=== PATIENT | female | born 2000 ===

== ENCOUNTER 2025-01-30 08:20 | Emergency (ER) | payer MEDICAID, OTHER, SELFPAY ==
--- NOTE | ~2025-01-30 | CT_ITS ---
EXAMINATION: CT ANGIOGRAM HEAD AND NECK CLINICAL INFORMATION: 25-year-old female, heard a crack, left side of neck pain. COMPARISON: None available. TECHNIQUE: Noncontrast axial imaging of the head was performed. This was followed by test bolus sequences and head and neck intravenous bolus administration 70 mL of Omnipaque 350. Helical imaging was performed in the axial plane from the aortic arch to the skull vertex. The data was processed at the chief nuclear medicine technologist's workstation for generation of MIP sequences. Angled MIPs and volume rendered reformatted images were also generated at an offline 3D workstation. Stenoses are assessed in accordance with NASCET criteria unless otherwise indicated. This CT examination was performed using dose optimization techniques as appropriate, variously including the following: *Automated exposure control *Adjustment of mA and/or kV according to patient size (this includes techniques or standardized protocols for targeted exams where dose is matched to indication/reason for exam; i.e. extremities or head) *Use of iterative reconstruction technique FINDINGS: NONCONTRAST HEAD CT: There is no evidence of intracranial hemorrhage or extra-axial fluid collection. There is no mass effect, or edema. No CT evidence of acute territorial infarct. Ventricles, sulci, and cisterns are normal in size and configuration for patient age. No hydrocephalus. No midline shift. No significant white matter abnormalities. Normal pituitary. Globes and orbital contents image normally. No extracranial soft tissue abnormalities. The paranasal sinuses, mastoid air cells, and tympanic cavities are normally aerated. No suspicious bony abnormalities. NECK CTA: -AORTIC ARCH: Normal in caliber. Mild atheromatous calcification. Three-vessel branching pattern. -GREAT VESSEL ORIGINS: Widely patent. No stenosis. -RIGHT COMMON CAROTID ARTERY: Normal in course and caliber to the level of the bifurcation. -CERVICAL RIGHT INTERNAL CAROTID ARTERY: Normal opacification without focal stenosis or occlusion. -LEFT COMMON CAROTID ARTERY: Normal in course and caliber to the level of the bifurcation. -CERVICAL LEFT INTERNAL CAROTID ARTERY: Normal opacification without focal stenosis or occlusion. -CERVICAL RIGHT VERTEBRAL ARTERY: Normal origin. Normal in course and caliber into the skull base. -CERVICAL LEFT VERTEBRAL ARTERY: Dominant. Normal origin. Normal in course and caliber into the skull base. OTHER, SOFT TISSUES: -No lymphadenopathy or mass. No abnormal fluid collection or soft tissue swelling. -Normal thyroid. -Imaged superior mediastinal structures normal. -Imaged lung apices clear. CTA OF THE BRAIN: -INTRACRANIAL INTERNAL CAROTID ARTERIES: No focal stenosis or occlusion. -RIGHT ANTERIOR CEREBRAL ARTERY: Normal A1 segment.. Normal arborization of the distal segments. -LEFT ANTERIOR CEREBRAL ARTERY: Normal A1 segment.. Normal arborization of the distal segments. -ANTERIOR COMMUNICATING ARTERY: Normal. -RIGHT MIDDLE CEREBRAL ARTERY: Normal M1 segment of the MCA without focal stenosis or occlusion. Normal bifurcation. Normal arborization of the distal segments. -LEFT MIDDLE CEREBRAL ARTERY: Normal M1 segment of the MCA without focal stenosis or occlusion. Normal bifurcation. Normal arborization of the distal segments. -RIGHT VERTEBRAL ARTERY V4: Normal in course and caliber. -LEFT VERTEBRAL ARTERY V4: Normal in course and caliber. -BASILAR ARTERY: Normal without focal stenosis or occlusion. Normal appearance of the proximal superior cerebellar arteries. Normal basilar tip. -RIGHT POSTERIOR CEREBRAL ARTERY: Normal P1 segment. Normal opacification of the distal IN PROCESS INSPECTOR segments. -LEFT POSTERIOR CEREBRAL ARTERY: Normal P1 segment. Normal opacification of the distal IN PROCESS INSPECTOR segments. -POSTERIOR COMMUNICATING ARTERIES: Normal opacification of the superior sagittal, straight, transverse, and sigmoid sinuses. No venous thrombosis. No space-occupying hemorrhage or definite evolving infarct. CT/CT angio head neck IMPRESSION: NONCONTRAST HEAD CT: 1. No intracranial hemorrhage or mass effect. No CT evidence of acute territorial infarct. CTA NECK: 1. No evidence of stenosis, occlusion, dissection, or aneurysm in the major cervical arterial vasculature. CTA HEAD: 1. No evidence of stenosis, occlusion, dissection, or aneurysm in the major intracranial arterial vasculature. 2. Major cortical and dural venous sinuses are patent. Electronically signed by: Chance Briones MD 01/30/2025 02:21 PM EDT
[2025-01-30 08:28] VITALS: BP 118/63; PULSE 79; RESP 18; TEMP 36.6; O2SAT 100; BMI 22.7
--- OUTSIDE RECORDS SUMMARY | 2025-01-30 09:16 | XMS_ITS | Encounter Summary ---
Author Organization [employer] Address [address] [place] [address] [address] [place] [address] Care Team Providers Care Aegis Operations Specialist Name Role Phone Anamika Trotter NP Primary Care Provider [phone] Reason for Visit * Reason Onset Date Comments New Patient 05/10/2023 Encounter Details Date Type Department Care Team (Late st Contact Info) Description 05/10/2023 Telephone [facility] [address] [place] [address] Marquis Mays MD [address] [place], [place] [phone] New Patient Social History Tobacco Use Types Packs/Day Years Used Date Smoking Tobacco: Never Assessed Comments Unknown Sex and Gender Information Value Date Recorded Sex Assigned at Female 02/26/2024 2:29 PM EDT Legal Sex Female 2:32 PM EDT Gender Identity Female 02/26/2024 2:29 PM EDT Sexual Orientation Straight 02/26/2024 2: 29 PM EDT documented as of this encounter Miscellaneous Notes * Telephone Encounter - Norma Sutherland - 05/10/2023 2:36 PM EDT 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 SINCE 05/10/2023 documented in this encounter Plan of Treatment Upcoming Encounters Date Type Department Care Team (Late st Contact Info) Description 02/16/2025 2:30 PM EDT Office Visit [facility] [address] [place] [address] Anamika Trotter NP [address] [place] [address] 02/17/2025 2:15 PM EDT Procedure Visit [facility] [address] [place], [place] [phone] Magda Morales CNM [address] [place], [place] [phone] documented as of this encounter Visit Diagnoses Not on filedocumented in this encounter Care Teams Aegis Operations Specialist Relationship Specialty Start Date End Date Anamika Trotter NP [address] [place], [place] [phone] PCP - General Family Medicine 02/26/24 documented as of this encounter
--- NOTE | 2025-01-30 10:38 | ED.GENADULT ---
HPI - General Adult General Chief complaint: Neck Pain/Injury Stated complaint: Neck Pain No Injury Time Seen by Provider: 01/30/25 10:06 Source: patient Mode of arrival: ambulatory Limitations: no limitations History of Present Illness ED Provider: Jaime Emery HPI narrative: 25 yold female presents to the ED for left sided neck pain, decrease movement to left side of neck , pain of neck pain when moving to the left. Patient states she yawning and stretching her arms above her neck and than heard a pop in left side of neck and since than has pain, inability to turn neck pain to the left and neck leaning to the right. Patient denies any chest pain or shortness of breath Related Data Previous Rx's ?Medication ?Instructions ?Recorded cyclobenzaprine 10 mg tablet 10 mg PO TID PRN muscle spasm #15 01/30/25 tabs naproxen 500 mg tablet 500 mg PO BID PRN pain #14 tabs 01/30/25 Allergies Allergy/AdvReac Type Severity Reaction Status Date / Time No Known Allergies Allergy Verified 01/30/25 08:28 Review of Systems Review of Systems: pop in neck pain afer strecthing, unable o turn to the left Yes all other systems are reviewed and are negative Physical Exam ED Vital Signs: Vital Signs - 24 hr 01/30/25 08:28 01/30/25 11:42 01/30/25 14:51 Temperature 97.8 F 97.7 F Pulse Rate 79 67 69 Respiratory Rate 18 16 16 Blood Pressure 118/63 107/61 122/71 Pulse Oximetry 100 100 100 Oxygen Delivery Method Room Air Room Air Room Air BMI result Body Mass Index 22.7 Const General: cooperative, healthy appearing, comfortable, no acute distress, well developed, alert and awake Orientation/consciousness: patient oriented x3 HENMT Head: Yes normal to inspection, Yes No palpable skull fracture present, Yes normocephalic, Yes atraumatic and No abrasion Eyes General: appearance normal, both eyes and all related structures Neck Other: neck tilited to the right Neck: Yes normal visual inspection, Yes full ROM, Yes no lymphadenopathy, Yes no meningeal signs, Yes trachea midline, Yes supple, No anterior neck swelling and Yes tender (left lateral neck) Neck images:  1. tenderness on palpation. Chest Chest palpation & inspection: normal inspection of the chest and normal palpation of entire chest wall Resp Effort & Inspection: normal respiratory effort and able to speak in complete sentences Auscultation: clear to auscultation bilaterally Cardio Jugular venous distension: no JVD Heart sounds: S1 normal heart sound present and S2 normal heart sound present GI Inspection: Yes normal to inspection Palpation (GI): Soft to palpation, not firm, nontender, no guarding and not rigid General: Yes no CVA tenderness Back/Spine/Pelvis Back: no CVA tenderness and No back tenderness Skin General skin exam: no rashes or lesions noted, elasticity normal and turgor normal Neuro General: patient oriented x3, gait normal, tone normal, moves all extremities, Normal light touch and pain sensation, no meningeal signs, no focal motor deficits, CN's II-XI intact bilaterally and normal sensation to monofilament Extrem General: Yes normal to inspection, Yes full ROM and Yes capillary refill normal Psych Appearance: grossly normal, well kempt and not disheveled Medications Administered Discontinued Medications Generic Name Dose Route Start Last Admin Trade Name Freq PRN Reason Stop Dose Admin Cyclobenzaprine HCl 10 mg 01/30/25 10:18 01/30/25 10:44 Cyclobenzaprine Hcl 10 Mg Tablet PO 01/30/25 10:19 10 mg ONCE ONE Administration Iohexol 100 ml 01/30/25 14:00 01/30/25 14:00 Iohexol 350 Mg/Ml 100 Ml Infus..Btl IV 01/30/25 14:01 70 ml ONCE ONE Administration Ketorolac Tromethamine 30 mg 01/30/25 10:18 01/30/25 10:43 Ketorolac Tromethamine 30 Mg/Ml Vial IVPUSH 01/30/25 10:19 30 mg ONCE ONE Administration Medical Decision Making Medical Decision Making [facility] Narrative: 25-year-old female presents to ED for neck pain to move neck to the left, neck tilted to the right, pain or range of motoin towards the left ever since stretching upper extremity yawning and her pop in her left lateral side of her neck. 3:27pm: Patient head CTA negative for prior dissection. EKG negative STEMI. Troponin negative. Heart score is 0. Symptoms most likely due to neck strain muscle strain. Patient explained worrisome signs informed to return to the ED immediately. Patient to be discharged with NSAIDs and muscle relaxer. Not suspecting meningitis, [place], stroke, encephalitis or any other life threatening etioloigies. Differential Diagnosis Differential Diagnoses: The differential diagnosis associated with the presentation includes Admission/Observation Consideration of admission/observation: Escalation of care including admission/observation considered Lab Data MDM Lab Attestation statement: I reviewed the patient's lab results. 01/30/25 10:39 01/30/25 10:39 Labs: Lab Results 01/30/25 01/30/25 Range/Units 10:39 14:38 WBC 5.8 (4.8-10.8) X10*3/uL RBC 4.43 (4.20-5.50) X10*6/uL Hgb 13.4 (12.0-16.0) g/dl Hct 40.8 (37.0-47.0) % MCV 92.1 (80.0-98.0) fL MCH 30.2 (27.0-33.0) pg MCHC 32.8 (31.0-35.0) g/dl RDW 12.8 (11.0-16.0) % Plt Count 275 (160-400) X10*3/uL MPV 9.3 L (9.4-12.3) fL Immature Gran % (Auto) 0.3 (0.0-0.4) % Neut % (Auto) 61.8 (45-73) % Lymph % (Auto) 29.9 (20-40) % [place] % (Auto) 6.4 (2-11) % Eos % (Auto) 0.9 (0-4) % Baso % (Auto) 0.7 (0-2) % Lymph # (Auto) 1.7 (1.2-4.9) X10*3/uL [place] # (Auto) 0.4 (0.1-1.2) X10*3/uL Eos # (Auto) 0.1 (0.0-0.4) X10*3/uL Baso # (Auto) 0.0 (0.0-0.2) X10*3/uL Abs Immat Gran (auto) 0.02 (0.00-0.03) X10*3/uL Absolute Neuts (auto) 3.6 (2.0-8.3) x10*3/uL Absolute Nucleated RBC 0.000 (0.0-0.012) X10*3/uL Nucleated RBC % (auto) 0.0 (0.0-0.2) /100WBC Sodium 139 (135-145) mmol/L Potassium 4.5 (3.3-5.1) mmol/L Chloride 105 (96-108) mmol/L Carbon Dioxide 26 (22-29) mmol/L Anion Gap 13 (12-20) BUN 11 (9-16) mg/dL Creatinine 0.72 (0.5-1.4) mg/dL Estim Creat Clear Calc 88.5 Estimated GFR > 60 Random Glucose 89 (60-115) mg/dL Calcium 9.3 (8.4-10.2) mg/dL Total Bilirubin 0.2 (0.0-1.0) mg/dL AST 29 (5-31) U/L ALT 39 H (0-31) U/L Alkaline Phosphatase 58 (39-117) U/L Troponin I High Sens < 2.7 (<3.5-17.0) ng/L Total Protein 8.2 H (6.5-8.0) g/dL Albumin 5.0 (3.5-5.0) g/dL Beta HCG, Quant < 2 mIU/mL Independent Interpretation I performed an independent interpretation of an: CT Scan Radiology Impression Discussion of test interpretation with radiology: I have reviewed the radiologist's reading. Independent Historian Clinical information obtained from an independent historian. History obtained from or confirmed by: Other (patient) Prescription Management I considered prescription management with: Pain Medication Discharge Plan Discharge Clinical Impression: Strain of neck muscle Patient Disposition: Home, Self-Care Instructions: Cervical Strain (ED), Warm Compress or Soak (ED), Cold Compress or Soak (ED) Additional Instructions: Recommend follow up with the primary care provider. UR imaging EKG and lab work came back reassuring. Return to the ED immediately for worsening neck pain, weakness of left upper extremity, headache, dizziness, nausea, vomiting, chest pain, shortness of breath, slurred speech, facial droop paralysis of extremities, or any other concerning symptoms. Ordering Physician: Jaime Emery Date of Service: 01/30/25 Procedure(s): CT angio head neck Accession Number(s): [id number] cc: Jaime Emery; Physician,None ~ Report Number: [id number]: Total DLP = 1374.00 mGy-cm EXAMINATION: CT ANGIOGRAM HEAD AND NECK CLINICAL INFORMATION: 25-year-old female, heard a crack, left side of neck pain. COMPARISON: None available. TECHNIQUE: Noncontrast axial imaging of the head was performed. This was followed by test bolus sequences and head and neck intravenous bolus administration 70 mL of Omnipaque 350. Helical imaging was performed in the axial plane from the aortic arch to the skull vertex. The data was processed at the electrophysiology technologist's workstation for generation of MIP sequences. Angled MIPs and volume rendered reformatted images were also generated at an offline 3D workstation. Stenoses are assessed in accordance with NASCET criteria unless otherwise indicated. This CT examination was performed using dose optimization techniques as appropriate, variously including the following: *Automated exposure control *Adjustment of mA and/or kV according to patient size (this includes techniques or standardized protocols for targeted exams where dose is matched to indication/reason for exam; i.e. extremities or head) *Use of iterative reconstruction technique FINDINGS: NONCONTRAST HEAD CT: There is no evidence of intracranial hemorrhage or extra-axial fluid collection. There is no mass effect, or edema. No CT evidence of acute territorial infarct. Ventricles, sulci, and cisterns are normal in size and configuration for patient age. No hydrocephalus. No midline shift. No significant white matter abnormalities. Normal pituitary. Globes and orbital contents image normally. No extracranial soft tissue abnormalities. The paranasal sinuses, mastoid air cells, and tympanic cavities are normally aerated. No suspicious bony abnormalities. NECK CTA: -AORTIC ARCH: Normal in caliber. Mild atheromatous calcification. Three-vessel branching pattern. -GREAT VESSEL ORIGINS: Widely patent. No stenosis. -RIGHT COMMON CAROTID ARTERY: Normal in course and caliber to the level of the bifurcation. -CERVICAL RIGHT INTERNAL CAROTID ARTERY: Normal opacification without focal stenosis or occlusion. -LEFT COMMON CAROTID ARTERY: Normal in course and caliber to the level of the bifurcation. -CERVICAL LEFT INTERNAL CAROTID ARTERY: Normal opacification without focal stenosis or occlusion. -CERVICAL RIGHT VERTEBRAL ARTERY: Normal origin. Normal in course and caliber into the skull base. -CERVICAL LEFT VERTEBRAL ARTERY: Dominant. Normal origin. Normal in course and caliber into the skull base. OTHER, SOFT TISSUES: -No lymphadenopathy or mass. No abnormal fluid collection or soft tissue swelling. -Normal thyroid. -Imaged superior mediastinal structures normal. -Imaged lung apices clear. CTA OF THE BRAIN: -INTRACRANIAL INTERNAL CAROTID ARTERIES: No focal stenosis or occlusion. -RIGHT ANTERIOR CEREBRAL ARTERY: Normal A1 segment.. Normal arborization of the distal segments. -LEFT ANTERIOR CEREBRAL ARTERY: Normal A1 segment.. Normal arborization of the distal segments. -ANTERIOR COMMUNICATING ARTERY: Normal. -RIGHT MIDDLE CEREBRAL ARTERY: Normal M1 segment of the MCA without focal stenosis or occlusion. Normal bifurcation. Normal arborization of the distal segments. -LEFT MIDDLE CEREBRAL ARTERY: Normal M1 segment of the MCA without focal stenosis or occlusion. Normal bifurcation. Normal arborization of the distal segments. -RIGHT VERTEBRAL ARTERY V4: Normal in course and caliber. -LEFT VERTEBRAL ARTERY V4: Normal in course and caliber. -BASILAR ARTERY: Normal without focal stenosis or occlusion. Normal appearance of the proximal superior cerebellar arteries. Normal basilar tip. -RIGHT POSTERIOR CEREBRAL ARTERY: Normal P1 segment. Normal opacification of the distal UMBRELLA MENDER segments. -LEFT POSTERIOR CEREBRAL ARTERY: Normal P1 segment. Normal opacification of the distal UMBRELLA MENDER segments. -POSTERIOR COMMUNICATING ARTERIES: Normal opacification of the superior sagittal, straight, transverse, and sigmoid sinuses. No venous thrombosis. No space-occupying hemorrhage or definite evolving infarct. CT/CT angio head neck IMPRESSION: NONCONTRAST HEAD CT: 1. No intracranial hemorrhage or mass effect. No CT evidence of acute territorial infarct. CTA NECK: 1. No evidence of stenosis, occlusion, dissection, or aneurysm in the major cervical arterial vasculature. CTA HEAD: 1. No evidence of stenosis, occlusion, dissection, or aneurysm in the major intracranial arterial vasculature. 2. Major cortical and dural venous sinuses are patent. Electronically signed by: Chance Briones MD 01/30/2025 02:21 PM EDT Prescriptions: New naproxen 500 mg tablet 500 mg PO BID PRN (Reason: pain) Qty: 14 0RF cyclobenzaprine 10 mg tablet 10 mg PO TID PRN (Reason: muscle spasm) Qty: 15 0RF Rx Instructions: Side effects drowsiness. Do not take at work or while driving Stand Alone Forms: Work/School Release Interventions: ED Discharge Assessment Last Done: 01/30/25 15:44 Discharge Date/Time: 01/30/25 16:03 Print Language: Japanese
[2025-01-30 10:43] LABS: MANUAL DIFF FLAG NO
[2025-01-30 10:44] LABS: Hematocrit 40.8 % (37.0-47.0); Hemoglobin 13.4 g/dl (12.0-16.0); Imm Gran Abs Auto 0.02 X10*3/uL (0.00-0.03); Imm Gran Pct Auto 0.3 % (0.0-0.4); Lymphocytes Absolute Auto 1.7 X10*3/uL (1.2-4.9); Mean Corpuscular HGB Conc 32.8 g/dl (31.0-35.0); Mean Corpuscular Hemoglobin 30.2 pg (27.0-33.0); Mean Corpuscular Volume 92.1 fL (80.0-98.0); NRBC Abs Auto 0.000 X10*3/uL (0.0-0.012); NRBC Pct Auto 0.0 /100WBC (0.0-0.2); Platelet Count 275 X10*3/uL (160-400); Red Blood Count 4.43 X10*6/uL (4.20-5.50); White Blood Count 5.8 X10*3/uL (4.8-10.8)
[2025-01-30 11:05] LABS: Alanine Aminotransferase 39 U/L (0-31); Albumin Level 5.0 g/dL (3.5-5.0); Alkaline Phosphatase 58 U/L (39-117); Anion Gap 13 (12-20); Aspartate Amino Transferase 29 U/L (5-31); Blood Urea Nitrogen 11 mg/dL (9-16); Calcium 9.3 mg/dL (8.4-10.2); Carbon Dioxide 26 mmol/L (22-29); Chloride 105 mmol/L (96-108); Creatinine Clr Calc Pharmacy 88.5; Estimated Glomerular Filt Rate > 60; Potassium 4.5 mmol/L (3.3-5.1); Sodium 139 mmol/L (135-145); Total Protein 8.2 g/dL (6.5-8.0)
[2025-01-30 11:42] VITALS: BP 107/61; PULSE 67; RESP 16; O2SAT 100
[2025-01-30] MEDS: iohexoL 350 MG/ML 100 ML INFUS..BTL IV (14:00)
--- NOTE | 2025-01-30 14:00 | ECG_ITS ---
Test Reason : NECK PAIN/LEFT ARM PAIN Blood Pressure : */* mmHG Vent. Rate : 73 BPM Atrial Rate : 73 BPM P-R Int : 152 ms QRS Dur : 76 ms QT Int : 406 ms P-R-T Axes : 32 26 38 degrees QTcB Int : 447 ms Normal sinus rhythm Normal ECG No previous ECGs available Referred By: Jaime Emery Electronically Signed By: Tacos Lara
[2025-01-30 14:51] VITALS: BP 122/71; PULSE 69; RESP 16; TEMP 36.5; O2SAT 100
[2025-01-30 15:14] LABS: Troponin-I High Sensitivity < 2.7 ng/L (<3.5-17.0)
[2025-01-30 15:44] VITALS: BP 122/71; PULSE 69; RESP 16; TEMP 36.5; O2SAT 100
== END 2025-01-30 16:03 | disposition home or self-care (01) ==
PROVIDERS: Physician Assistant; Emergency Provider Emergency Medicine Emergency Medical Services
DX: S16.1XXA Strain of muscle, fascia and tendon at neck level, initial encounter (principal); R51.9 Headache, unspecified; M54.2 Cervicalgia; R10.2 Pelvic and perineal pain; X58.XXXA Exposure to other specified factors, initial encounter; Y93.9 Activity, unspecified; Y92.9 Unspecified place or not applicable; Y99.8 Other external cause status
CPT/HCPCS: 36415; 70496; 70498; 80053; 84484; 84702; 85025; 93005; 96374; 99284; J1885; Q9967

== ENCOUNTER → 2025-01-30 11:34 | Outpatient (BNV) | payer MEDICAID, SELFPAY | PROVIDERS: Emergency Provider Emergency Medicine Emergency Medical Services; Visit Provider Radiology Diagnostic Radiology | DX: M54.2 Cervicalgia (principal) | CPT/HCPCS: 70496; 70498 ==

== ENCOUNTER → 2025-01-30 14:00 | Outpatient (BNV) | payer MEDICAID, SELFPAY | PROVIDERS: Emergency Provider Emergency Medicine Emergency Medical Services; Visit Provider Internal Medicine Cardiovascular Disease | DX: M54.2 Cervicalgia (principal); M79.602 Pain in left arm | CPT/HCPCS: 93010 ==

== ENCOUNTER 2025-02-16 17:32 | Outpatient (REF) | payer MEDICAID, OTHER, SELFPAY ==
--- OUTSIDE RECORDS SUMMARY | 2025-02-16 14:30 | XMS_ITS | Encounter Summary ---
Author Organization [employer] Address [address] [facility] [address] [place] [address] Care Team Providers Care Blueprint Engineer Name Role Phone Anamika Trotter NP Primary Care Provider [phone] Encounter Details Date Type Department Care Team (Latest Contact Info) Description 02/16/2025 2:30 PM EDT Office Visit [facility] [address] [place] [address] Anamika Trotter NP [address] [place] [address] Cervical cancer screening (Primary Dx); Encounter for initial prescription of contraceptive pills Social History Tobacco Use Types Packs/Day Years Used Date Smoking Tobacco: Never Alcohol Use Standard Drinks/Week Comments Yes 0 (1 standard drink = 0.6 oz pur e alcohol) occasionally Depression Answer Date Recorded Patient Health Questionnaire-9 Score 0 02/26/2024 Patient Health Questionnaire-9 Score 0 02/26/2024 Last PHQ-9: Questionnaire Data Not on file 0 02/26/2024 Housing Stability Answer Date Recorded What is your housing situation today? I have jason solano 02/26/[address] you li ve. Do you have problems with any of the following? None of the above 02/26/2024 Food Insecurity Answer Date Recorded Within the past 12 months, y ou worried that your food would run out before you got money to buy more: Never True 02/26/2024 Within the past 12 months,th e food you bought just didn't last and you didn't have enough money to get more: Never True Transportation Answer Date Recorded In the past 12 months, has l ack of transportation kept you from medical appts, meetings, work or from getting things needed for daily living? No 02/26/2024 Utilities Answer Date Recorded In the past 12 months, has t he electric, gas, oil or water company threatened to shut off services in your home? Yes 02/26/2024 Depression Answer Date Recorded Patient Health Questionnaire-2 Score 0 02/26/2024 Internet Access Answer Date Recorded Internet Access Q1 Yes 03/10/2024 Internet Access Q2 Not on file 03/10/2024 Comments Unknown Sex and Gender Information Value Date Recorded Sex Assigned at Female 02/26/2024 2:29 PM EDT Legal Sex Female 2:32 PM EDT Gender Identity Female 02/26/2024 2:29 PM EDT Sexual Orientation Straight 02/26/2024 2: 29 PM EDT documented as of this encounter Last Filed Vital Signs Vital Sign Reading Time Taken Comments Blood Pressure 122/82 02/16/2025 2:22 PM EDT Pulse 64 02/16/2025 2:22 PM EDT Temperature 35.6 C (96 F) 02/16/2025 2:22 PM EDT Respiratory Rate 18 02/16/2025 2:22 PM EDT Oxygen Saturation 99% 02/16/2025 2:22 PM EDT Inhaled Oxygen Concentration - - Weight 62.7 kg (138 lb 3.2 oz) 02/16/2025 2:22 P M EDT Height 157.5 cm (5' 2 ) 02/16/2025 2:22 PM EDT Body Mass Index 25.28 02/16/2025 2:22 PM EDT documented in this encounter Plan of Treatment Scheduled Orders Name Type Priority Associated Diagnoses Orde r Schedule Pap Smear Pathology and Cytology Routine Encounter for initial prescription of contraceptive pills Ordered: 02/16/2025 STI testing add on (NG, CT, Trich) Pathology and Cytology Routine Encounter for initial prescription of contraceptive pills Ordered: 02/16/2025 POCT Urine Point of Care Testing Routine Encounter for initial prescription of contraceptive pills Ordered: 02/16/2025 documented as of this encounter Visit Diagnoses Diagnosis Cervical cancer screening- Primary Screening for malignant neoplasm of the cervix Encounter for initial prescription of contraceptive pills documented in this encounter Additional Health Concerns Assessment Noted Time PHQ-9 Depression Total Score: 0 02/26/20 24 2:34 PM EDT documented as of this encounter Care Teams Blueprint Engineer Relationship Specialty Start Date End Date Anamika Trotter NP [address] [place] [id number] PCP - General Family Medicine 02/26/24 documented as of this encounter
[2025-02-18 21:38] LABS: C. trachomatis RNA TMA NOT DETECTED (NOT DETECTED); N. gonorrhoeae RNA TMA NOT DETECTED (NOT DETECTED); Trichomonas (NAAT) NOT DETECTED (NOT DETECTED)
== END 2025-02-16 17:33 | disposition home or self-care (01) ==
LOC: HO.HHCLNP 17:32
PROVIDERS: Visit Provider Nurse Practitioner Family
DX: Z30.011 Encounter for initial prescription of contraceptive pills (principal)
CPT/HCPCS: 87491; 87591; 87661; 88175

== ENCOUNTER 2025-05-07 18:46 | Outpatient (REF) | payer MEDICAID, OTHER, SELFPAY ==
[2025-05-08 01:34] LABS: Bacterial Vaginosis PCR NEGATIVE (Negative); Candida Group PCR NOT DETECTED (Not Detect); Candida glab krusei PCR NOT DETECTED (Not Detect); Trichomonas vaginalis PCR NOT DETECTED (Not Detect)
== END 2025-05-07 18:47 | disposition home or self-care (01) ==
LOC: HO.HHCLNP 18:46
PROVIDERS: Visit Provider Nurse Practitioner Family
DX: Z32.01 Encounter for pregnancy test, result positive (principal)
CPT/HCPCS: 81515